=== PATIENT | female | born 1995 | race Caucasian/White ===

== ENCOUNTER 2018-12-10 11:47 | Emergency (ER) | payer OTHER ==
[~2018-12-10] VITALS: Ht 172.7 cm; Wt 70.5 kg
[2018-12-10 12:22] LABS: HEMATOCRIT 37.3 % (35.0-45.0); HEMOGLOBIN 12.9 g/dL (12.0-15.0); MEAN CELL VOLUME 84 fl (78-95); MEAN CORPUSCULAR HEMOGLOBIN 29 pg (26-32); MEAN CORPUSCULAR HGB CONC 35 g/dL (33-37); MEAN PLATELET VOLUME 10.7 fl (7.4-10.4); PLATELET COUNT 205 K/mm3 (130-400); RED BLOOD COUNT 4.45 M/mm3 (4.10-5.30); RED CELL DISTRIBUTION WIDTH 12.8 % (11.5-14.5); WHITE BLOOD COUNT 7.1 K/mm3 (4.8-10.8)
[2018-12-10 12:31] LABS: ALBUMIN 4.1 g/dL (3.5-5.0); POTASSIUM 3.7 mmol/L (3.5-5.1)
[2018-12-10 12:32] LABS: CALCIUM 9.3 mg/dL (8.3-10.5)
[2018-12-10 12:35] LABS: TOTAL BILIRUBIN 0.9 mg/dL (0.2-1.2)
[2018-12-10 12:44] LABS: LYMPHOCYTE 15 % (20-51); MONOCYTE 4 % (1-10); NEUTROPHILS 81 % (42-75)
[2018-12-10 12:47] LABS: PH-URINE 5.5 (5.0 - 8.0); URINE APPEARANCE HAZY; URINE BILIRUBIN NEGATIVE (NEGATIVE); URINE BLOOD 50 ery/uL (NEGATIVE); URINE COLOR YELLOW; URINE GLUCOSE NEGATIVE (NEGATIVE); URINE KETONE 3+ (NEGATIVE); URINE LEUKOCYTE ESTERASE NEGATIVE (NEGATIVE); URINE NITRATE NEGATIVE (NEGATIVE); URINE PROTEIN(semi-quant) 1+ mg/dL (NEGATIVE); URINE UROBILINOGEN NORMAL (NORMAL)
[2018-12-10 12:48] LABS: URINE MUCUS PRESENT (NOT PRESENT)
[2018-12-10] MEDS ORDERED: BONJESTA ER 201 EACH PO (15:43)
[2018-12-10 16:36] VITALS: BP 114/67
== END 2018-12-10 16:25 | disposition home or self-care (01) ==
LOC: ED 11:47
PROVIDERS: Nurse Practitioner Primary Care
DX: O21.9 Vomiting of pregnancy, unspecified (principal); O26.831 Pregnancy related renal disease, first trimester; R31.9 Hematuria, unspecified; Z3A.09 9 weeks gestation of pregnancy
CPT/HCPCS: J2550; J7030

== ENCOUNTER → 2022-12-11 | Outpatient (CLI) | payer OTHER ==
[~2022-12-11] MED LIST: BONJESTA ER 201 EACH PO
[2022-12-11 14:17] LABS: BASO # 0.02 K/mm3 (0.02-0.10); EOS # 0.08 K/mm3 (0.04-0.40); EOS % 1.1 % (1.0-5.0); HEMATOCRIT 42.8 % (37.0-47.0); HEMOGLOBIN 14.1 g/dL (12.5-16.0); LYMPH# 2.13 K/mm3 (1.50-4.00); MEAN CELL VOLUME 90 fl (78-100); MEAN CORPUSCULAR HEMOGLOBIN 30 pg (27-31); MEAN CORPUSCULAR HGB CONC 33 g/dL (33-37); MEAN PLATELET VOLUME 9.7 fl (7.4-10.4); MONO # 0.48 K/mm3 (0.20-0.80); NEU # 4.49 K/mm3 (1.40-6.50); PLATELET COUNT 241 K/mm3 (130-400); RED BLOOD COUNT 4.77 M/mm3 (4.10-5.30); RED CELL DISTRIBUTION WIDTH 12.5 % (11.5-14.5); WHITE BLOOD COUNT 7.2 K/mm3 (4.8-10.8)
[2022-12-11 14:25] LABS: ALBUMIN 4.5 g/dL (3.5-5.0)
[2022-12-11 14:26] LABS: CALCIUM 9.4 mg/dL (8.3-10.5)
[2022-12-11 14:27] LABS: TOTAL PROTEIN 7.6 g/dL (6.4-8.3)
[2022-12-11 14:29] LABS: TOTAL BILIRUBIN 0.4 mg/dL (0.2-1.2)
== END ==
LOC: LAB 13:59
PROVIDERS: Nurse Practitioner
DX: Z32.01 Encounter for pregnancy test, result positive (principal); R63.5 Abnormal weight gain

== ENCOUNTER → 2023-11-21 | Outpatient (CLI) | payer OTHER | LOC: RAD 09:19 | DX: N93.9 Abnormal uterine and vaginal bleeding, unspecified (principal) ==

== ENCOUNTER → 2024-03-26 | Outpatient (CLI) | payer OTHER ==
[~2024-03-26] MED LIST changes: +Iohexol 300 - 100 ML VIAL IV ONE; +NS 100 ML IV ONE
== END ==
LOC: RAD 08:28
DX: R10.30 Lower abdominal pain, unspecified (principal); R10.2 Pelvic and perineal pain
CPT/HCPCS: Q9967